=== PATIENT | female | born 1960 | race Caucasian/White ===

== ENCOUNTER 2019-05-26 10:15 | Emergency (ER) | payer BC ==
[2019-05-26 11:05] VITALS: BP 138/75
--- NOTE | 2019-05-26 11:32 | UC ---
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 Has been traveling via car last couple days. No pain perse. No tinnitus. Does have hx sinus allergies and cough varient allergies, but does not feel like has a sinus infection. No rash, st, current cough, sob / cp / palpitations. No fever. Some discomfort in ear with up and down altitude. - History of Current Complaint Chief Complaint: UCEar Stated Complaint: LEFT EAR Time Seen by Provider: 05/26/19 11:30 Hx Obtained From: Patient Hx Last Menstrual Period: age 53 Pain Intensity: 0 - Allergy/Home Medications Allergies/Adverse Reactions: Allergies Allergy/AdvReac Type Severity Reaction Status Date / Time hydrocodone AdvReac Vomiting Verified 05/26/19 11:08 hydromorphone AdvReac Vomiting, Verified 05/26/19 11:09 headache codeine and related AdvReac vomiting Uncoded 05/26/19 11:09 and migraine hay fever AdvReac Coughing Uncoded 05/26/19 11:09 Home Medications: Home Medications Estradiol [Evamist] 1.53 mg TD DAILY 05/26/19 [History Confirmed 05/26/19] Lisinopril [Zestril 5 MG-] 5 mg PO DAILY 05/26/19 [History Confirmed 05/26/19] Progesterone CAP (NF) [Prometrium (NF)] 1 dose PO QPM 05/26/19 [History Confirmed 05/26/19] Rosuvastatin Calcium [Crestor] 5 mg PO QPM 05/26/19 [History Confirmed 05/26/19] PMH/Surg Hx/FS Hx/Imm Hx Previously Healthy: Yes - see hpi - Surgical History Surgical History: Yes Surgery Procedure, Year, and Place: unrelated surgeries per pt; head laceration repair - Family History Known Family History: Positive: Non-Contributory - Social History Alcohol Use: Occasionally Substance Use Type: None Smoking Status (MU): Former Smoker Review of Systems All Other Systems Reviewed And Are Negative: Yes Constitutional: Positive: Negative Skin: Positive: Negative Eyes: Positive: Negative ENT: Positive: Other - see hpi Respiratory: Positive: Other - see hpi Cardiovascular: Positive: Negative Gastrointestinal: Positive: Negative Genitourinary: Positive: Negative Motor: Positive: Negative Neurovascular: Positive: Negative Musculoskeletal: Positive: Negative Neurological: Positive: Negative Psychological: Positive: Negative Is Patient Immunocompromised?: No Physical Exam Triage Information Reviewed: Yes Appearance: Well-Appearing, Well-Nourished Vital Signs: Initial Vital Signs Temp 99.4 F 05/26/19 10:53 Pulse 88 05/26/19 10:53 Resp 18 05/26/19 10:53 BP 138/75 05/26/19 10:53 Pulse Ox 98 05/26/19 10:53 Vital Signs Reviewed: Yes Eye Exam: Normal ENT: Positive: Pharynx normal, Nasal congestion, Other - L TM intact, normal. R TM intact, dull Rtx'd. Both EACs (but L>R) + redness and irritation, mild clear drainage. No purulence. Minimal cerumen. Neck exam: Normal Neck: Positive: Supple, Nontender, No Lymphadenopathy Respiratory Exam: Normal - declines auscultation. RR normal, no cough, no distress Cardiovascular Exam: Normal - declines ausculation. hr normal, nondiaphoretic. Abdominal Exam: Normal - sitting up, no c/o's Musculoskeletal Exam: Normal - gait steady Neurological Exam: Normal - see hpi o/w nonfocal, gait steady Psychological Exam: Normal - conversing easily and appropriately. nad. Skin Exam: Normal - no visible or reported rash. Course/Dx - Course Course Of Treatment: Reviewed coa / tx plan. Questions as posed answered to the best of my ability. I called [facility] pharmacy - they do indeed carry ciprodex. However, since pt is en route to [place], she will request hard copy script just in case she needs to take it elsewhere. See avs. - Diagnoses Provider Diagnosis: Serous otitis media, Otitis externa Discharge ED - Sign-Out/Discharge Documenting (check all that apply): Patient Departure All imaging exams completed and their final reports reviewed: No Studies - Discharge Plan Condition: Stable Disposition: HOME Prescriptions: Ciproflox/Dexameth OTIC.SUSP* [Ciprodex OTIC.SUSP*] 4 drop .SEE ORDER TID #7 btl Patient Education Materials: Antihistamine/Decongestant (By mouth), Otitis Externa (ED), Serous Otitis Media (ED) Referrals: No Primary Care Phys,NOPCP [Primary Care Provider] - Additional Instructions: Please seek medical attention for worse or new problems, or if symptoms not better by Wednesday. Your symptoms will take several days, even up to a couple weeks to improve. Hydrate. Watch blood pressure and heart rate with decongestant. Follow up with a primary care physician as soon as you are able for recheck. - Billing Disposition and Condition Condition: STABLE Disposition: Home
== END 2019-05-26 12:15 | disposition home or self-care (01) ==
LOC: UCCORT 10:15
DX: H65.92 Unspecified nonsuppurative otitis media, left ear (principal); H60.92 Unspecified otitis externa, left ear; R09.81 Nasal congestion; Z88.5 Allergy status to narcotic agent; Z91.09 Other allergy status, other than to drugs and biological substances; Z87.891 Personal history of nicotine dependence
CPT/HCPCS: 99202; G0463